=== PATIENT | male | born 1995 | race Caucasian/White ===

== ENCOUNTER 2017-01-03 16:56 | Emergency (ER) | payer MEDICAID ==
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
--- NOTE | 2017-01-06 08:36 | CR ---
Hand Comp Min 3V Rt HISTORY: hand injury, punched door FINDINGS: No acute fracture or dislocation is identified. Bony architecture and joint spaces are preserved. S oft tissues are unremarkable. IMPRESSION: No acute right hand abnormality identified.
== END 2017-01-03 17:35 ==
LOC: EDSEX 16:56 → JP.ED 16:56
DX: S60.221A Contusion of right hand, initial encounter (principal); Z88.8 Allergy status to other drugs, medicaments and biological substances; W22.8XXA Striking against or struck by other objects, initial encounter
CPT/HCPCS: 73130-26-RT; 73130-RT; 99284

== ENCOUNTER 2019-01-02 08:15 | Emergency (ER) | payer SELFPAY ==
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
[2019-01-02] MEDS ORDERED: Acetaminophen 325 MG Tab PO ONE (09:09)
[2019-01-02] MEDS ORDERED: Ibuprofen 400 MG Tab PO ONE (09:09)
--- NOTE | 2019-01-02 09:14 | CRLCR ---
INDICATION: Trauma. Pain. Distal lateral malleolar pain. TECHNIQUE: Three views of the right ankle. FINDINGS: No acute fracture dislocation. No erosion or intrinsic skeletal lesion. The tibiotalar joint space is intact. No posterior malleolar fracture. IMPRESSION: Negative right ankle. Dictated by Shen Min MD @ Jan 02 2019 9:11AM Signed by Dr. Shen Min @ Jan 02 2019 9:12AM
== END 2019-01-02 09:34 | disposition home or self-care (01) ==
LOC: JP.ED 08:15
DX: S93.401A Sprain of unspecified ligament of right ankle, initial encounter (principal); Z88.8 Allergy status to other drugs, medicaments and biological substances; X50.9XXA Other and unspecified overexertion or strenuous movements or postures, initial encounter; Y93.67 Activity, basketball
CPT/HCPCS: 73610; 99283; A9270